=== PATIENT | female | born 1975 | race Caucasian/White ===

== ENCOUNTER 2021-09-09 17:32 | Emergency (ER) | payer MEDICAID, OTHER ==
--- NOTE | 2021-09-09 17:35 | NUR ---
CALLED TO TRIAGE,NO ANSWER
--- NOTE | 2021-09-09 17:50 | NUR ---
CALLED TO TRIAGE,NO ANSWER
--- NOTE | 2021-09-09 18:10 | NUR ---
CALLED TO TRIAGE,NO ANSWER
--- NOTE | 2021-09-09 18:26 | NUR ---
Pt called to [facility], pt not in waiting room
== END 2021-09-09 18:27 | disposition left against medical advice (07) ==
LOC: ER 17:38
DX: Z53.21 Procedure and treatment not carried out due to patient leaving prior to being seen by health care provider (principal)